=== PATIENT | male | born 1935 | race Caucasian/White ===

== ENCOUNTER 2017-08-08 08:30 | Observation (INO) | payer MEDICARE, MEDICAID ==
[2017-08-08] VITALS (10 sets, daily range): BP systolic 91–139; BP diastolic 48–94
[~2017-08-08] VITALS: Ht 188 cm; Wt 81.6 kg
[~2017-08-08 08:30] MED LIST: ABILIFY 2 MG2 M1 PO; APAP650 PO; ASPIR-TRIN325 MG PO; CLARITIN10 MG PO; COREG6.25 MG PO; DIGOXIN125 MCG PO; DUONEB 2.5-0.5 M3 ML INH; ENDUR-ACIN500 MG PO; LAMICTAL100 MG PO; LANTUS100 UNIT/M SUBQ; LASIX 40 MG TAB40 M2 PO; LEXAPRO20 MG PO; MAALOX ADVANCE355 M1 PO; MILK OF MA2400 MG/10 PO; NEURONTIN 300300 M1 PO; NITROGLYCERIN0.4 MG PO; PACERONE 200 M200 M1 PO; PLAVIX 75 MG TA75 M1 PO; POTASSIUM20 PO; TRAZODONE HCL50 MG PO; VENLAFAXINE HC150 M1 PO; VICODIN 5-3001 EACH PO; VISTARIL 25 MG25 M1 PO; VITAMIN D1000 UNI1 PO; ZANTAC 150MG T150 MG PO
[2017-08-08 09:07] LABS: HEMATOCRIT 40.2 % (42.0-52.0); MCH 31.3 pg (26.0-34.0); MCHC 32.3 g/dL (28.0-37.0); MCV 96.9 fL (80.0-100.0); MPV 10.6 fl. (7.2-11.1); RBC 4.14 mil/uL (4.50-6.00); RDW-CV 13.8 % (10.5-14.5); WBC 9.5 thou/uL (4.0-11.0)
[2017-08-08 09:16] LABS: CALCIUM 8.6 mg/dL (8.5-10.1); CREATININE 1.4 mg/dL (0.6-1.3); POTASSIUM 4.3 mmol/L (3.5-5.1)
[2017-08-08 09:20] LABS: APTT 25.9 Seconds (25.0-31.3); PROTIME 10.2 Seconds (9.20-11.50)
[2017-08-08 09:21] LABS: ALBUMIN 3.3 g/dL (3.4-5.0); TOTAL BILIRUBIN 0.4 mg/dL (<0.1-1.0)
--- NOTE | 2017-08-08 16:25 | EKG ---
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 : 1935 Requested By: Vikram Payne Order Number: [id number] Reading MD: Vikram Payne Measurements Intervals [place] Rate: 68 P: 0 [place]: 163 QRS: -81 QRSD: 284 T: 98 QT: 583 QTc: 621 Interpretive Statements A-V dual-paced rhythm with some inhibition No further analysis attempted due to paced rhythm Compared to ECG 01/27/2016 11:49:36 No significant changes Electronically Signed On 08-08-2017 16:25:38 CHIEF INFORMATION OFFICER by Vikram Payne [email or web address] <ELECTRONICALLY SIGNED> By: Vikram Payne MD, [facility] 08/08/17 1625 5 Vikram Payne MD, [facility] /EPI
[2017-08-09] VITALS: BP 87/45; BP 93/54
[2017-08-09 04:00] VITALS: BP 87/45
--- NOTE | 2017-08-09 07:07 | NUR ---
TOOK OVER CARE OF PT AT 0100, PT WAS SLEPING, IV FLUIDS NOTED TO BE INFUSING, LEFT ARM IN SLING, ABLE TO SEE DRESSING TO THE UPPER LEFT CHEST WHICH WAS C/D/I, 2L NC, V-PACED ON THE MONITOR, NURSE PROVIDING ME REPORT STATED PT'S BP RUN SOFT IN LOW 90'S/50'S, PT 0400 BP SOFT, PT ASYMPTOMATIC, PT REC PAIN MED FOR SORENESS TO INCISIONAL SITE X1, HOURLY ROUNING IN PLACE, FALL PRECAUIONS IN PLACE, WILL CONT TO MONITOR.
[2017-08-09 08:28] VITALS: BP 87/45
[2017-08-09 08:30] VITALS: BP 94/56
--- NOTE | 2017-08-09 09:57 | NUR ---
Pt discharging back to the [facility] in [place] today. Faxed dc orders. Chart copied. Nurse report number provided, . Updated Pt's Public Electrician Underground, Hayley Kelley of disposition. 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 Following.
[2017-08-09 12:07] VITALS: BP 92/48
--- NOTE | 2017-08-09 13:09 | EKG ---
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
--- NOTE | 2017-08-09 13:45 | NUR ---
RECEIVED REPORT FROM NOC RN. PT A & O X4. ABLE TO COMMUNICATE NEEDS TO STAFF. VS OBTAINED. ASSESSMENT COMPLETED. MEDS PER MAR. M/S STATUS. DC ORDERS COMPLETE. IV & TELE MONITOR DC'D. DC INSTRUCTIONS AND MED LIST PROCESSED AND INCLUDED IN PACKET THAT WAS GIVEN TO TRANSPORTATION PERSONNEL. PT LEFT UNIT AT 1340 VIA WC AND TRANSPORTER. PT TAKEN VIA WC VAN TO [facility] IN [place].
--- NOTE | 2017-08-21 08:38 | D ---
[facility] [address] [place] [address] DISCHARGE SUMMARY Name: LEONOR ARMSTRONG Room: [address] Shahla MLeonRLeon#: [id number] Admission: 08/08/17 Attend Phys: Vikram Payne MD Discharge: 08/09/17 Date of : 31 Report #: [id number] THIS REPORT FOR: //name// CC: Carlos Enrique Gallego MD LOCATED WITHIN [facility] DIS[facility]GE DIAGNOSES: 1. Complete heart block. 2. Right ventricular lead failure. PROCEDURES DURING THE HOSPITALIZATION: RV lead revision. HOSPITAL COURSE: The patient was brought to the hospital for revision of a failing right ventricular lead. The patient was brought to the interventional radiology lab. The device was explanted. The right ventricular lead was capped and a new RV lead placed. The patient had dislodgement of the lead post-procedure requiring returning to the IR lab for readjustment and positioning of the RV lead. Ultimately, a satisfactory position was achieved. The patient was kept in the hospital overnight. Chest x-ray showed no evidence of pneumothorax. Thresholds were checked the day following implant and were deemed to be satisfactory. The patient was returned to his assisted care facility in stable condition. DISCHARGE MEDICATIONS: Include Tylenol 650 mg p.r.n., amiodarone 200 mg daily, carvedilol 6.25 mg b.i.d., vitamin D 1000 units daily, digoxin 0.125 mg daily, Lexapro 20 mg daily, furosemide 40 mg daily, gabapentin 300 mg daily, Vicodin 5/300 q.6 hours p.r.n., Vistaril 25 mg 2 tablets q.6 hours, Lantus per sliding scale, lamotrigine 100 mg 1-1/2 tablets b.i.d., Claritin 10 mg daily, magnesium hydroxide 30 mL p.r.n., Maalox p.r.n., niacin 500 mg daily, Nitrostat p.r.n., potassium chloride 20 mEq b.i.d., Zantac 150 mg daily, trazodone 50 mg p.r.n., venlafaxine ER 150 mg daily, aspirin 325 mg daily, and Plavix 75 mg daily. DISPOSITION: The patient will follow up with site check in 1 week and per pacemaker routine. <ELECTRONICALLY SIGNED> By: Vikram Payne MD, FACC 08/21/17 0838 0932 1055Michema Payne MD, FACC /nt
--- NOTE | 2017-08-23 07:14 | CARD ---
[address] [address] CARDIAC CATH REPORT Name: LEONOR ARMSTRONG Room: [address] Shahla Guaman#: [id number] Admission: 08/08/17 Attend Phys: Vikram Payne MD Discharge: 08/09/17 Date of : 31 Report #: [id number] THIS REPORT FOR: //name// APPROVED REPORT Patient Status: OP Room #: Event Personnel: Vikram Payne Sql Engineer, Zuri Perales Monitor, Rima Prajapati RTR Scrub, Marzena Calderón RN Lance Crewmember, Lucero Jo RN Lance Crewmember Exam: Generator Change for a Dual Chamber Permanent Pacemaker with RV lead revision Indications: dual-chamber pulse generator at elective replacement. RV lead failure. The patient is a 81 year-old male with a history of . Conscious Sedation Start time: 10:50 End Time: 11:23 Fentanyl 50 mcg Versed 1 mg Implanted Devices: Biotronik Etrinsa 8 DR-T, model #582115, serial #[id number] Biotronik Solia S 60, model #910198, serial #[id number] Explanted Devices: Medtronic Adapta, model number a DDDR 01, serial number [id number] Medtronic model #407 65 8 serial number [id number] ventricular lead (capped) Procedure The patient underwent informed consent. We discussed the details of the procedure including the risks, which include, but not limited to bleeding, infection, vascular damage, cardiac perforation, and pneumothorax. After informed consent was obtained the patient was brought to the interventional radiology lab. The area of the left chest was prepped and draped in sterile fashion. Local anesthesia was achieved with 1% lidocaine. Next after an initial incision was made over the existing pulse generator the generator was explanted using electrocautery and blunt dissection. The patient was pacemaker dependent. The existing RV lead was attached to an external pulse generator for the remainder of the procedure. Next using a micropuncture kit and a peripheral injection of contrast the left subclavian vein was accessed. Ultimately a safety J guidewire was advanced to an area in the right atrium under fluoroscopic guidance. A [address] [place] [address] CARDIAC CATH REPORT Name: LEONOR ARMSTRONG [address] [id number] Admission: 08/08/17 Attend Phys: Vikram Payne MD Discharge: 08/09/17 Date of : 31 Report #: [id number] was advanced. Dilator and guidewire were removed and a right ventricular lead advanced to a secure position and the right ventricular apex. Thresholds were not adequate in this region. The lead was then affixed to the right ventricular septum. Thresholds were checked and deemed to be satisfactory. The lead was actively fixed. Next the existing RV lead was capped as the new RV lead was used for pacing. The right ventricular and atrial leads were attached to a new pulse generator. The pacemaker pocket was flushed using antibiotic solution. The Lead, generator and redundant RV and atrial leads were placed within the device pocket. The deep tissues were closed using 2-0 Vicryl suture in interrupted stitches. The skin incision was then closed with a single subcuticular stitch of 4-0 Vicryl. Several Steri-Strips were placed across the incision. A sterile Telfa dressing was then covered with a Tegaderm. The patient tolerated she well without complication. Electrode Parameters P Wave: 0.90 mV R Wave: no underlying R waves Atrial Threshold: 1.0 V at 0.40 ms Ventricular Threshold: 0.6 V at 0.40 ms Atrial Resistance: 312 ohms. Ventricular Resistance: 565 ohms. Complications The patient tolerated the procedure well and there were no complications associated with the procedure. Conclusion 1. Dual-chamber pulse generator at elective replacement. 2. Chronic right ventricular lead failure. 3. Successful replacement of a dual-chamber pulse generator. 4. Successful replacement of the right ventricular lead. Recommendations 1. Follow-up site check in one week. 2. Follow-up pacemaker interrogation per routine. <ELECTRONICALLY SIGNED> By: Vikram Payne MD, FACC 08/23/17712 2 2Michema Payne MD, FACC /INF
--- NOTE | 2017-08-23 07:21 | CARD ---
[address] [address] CARDIAC CATH REPORT Name: LEONOR ARMSTRONG Room: [address] Shahla Guaman#: [id number] Admission: 08/08/17 Attend Phys: Vikram Payne MD Discharge: 08/09/17 Date of : 31 Report #: [id number] THIS REPORT FOR: //name// APPROVED REPORT Patient Status: OP Room #: Event Personnel: Vikram Payne Commercial Finance Manager, Zuri Perales Monitor, Rima Prajapati RTR Scrub, Marzena Calderón RN Psychiatric Mental Health Nurse, Lucero Jo RN Psychiatric Mental Health Nurse Exam: RV lead revision Indications: dislodgment of existing right ventricular lead after implantation The patient is a 81 year-old male with a history of complete heart block status post recent RV lead replacement and dual-chamber pulse generator replacement. Conscious Sedation Fentanyl 75 mcg Versed 1 mg Procedure The patient underwent informed consent. We discussed the details of the procedure including the risks, which include, but not limited to bleeding, infection, vascular damage, cardiac perforation, and pneumothorax. The patient underwent dual chamber pulse generator replacement and elective right ventricular lead revision. On the day of revision he was noted to have intermittent pacemaker capture. Interrogation revealed acute decline in capture threshold. X-ray revealed dislodgment of the right ventricular lead. The patient was brought back to the interventional radiology lab for RV lead revision. Informed consent was obtained. The area of the left chest was again prepped and draped in sterile fashion. The existing subcuticular stitches and the sutures were removed. The pulse generator was explanted. The pacemaker pocket was flushed with antibody solution. The RV lead was detached from the dual chamber pulse generator. The chronic failing RV lead was utilized intermittently for temporary pacing. The new RV lead was then repositioned to the right ventricular apex. A stable position was achieved. Adequate thresholds were achieved. The RV lead was then secured again in the pacemaker pocket using the designated cuffs and 2-0 silk suture. The RV lead was then reattached to the dual-chamber pulse generator. Pulse generator and redundant lead were then replaced within the device pocket. The deep tissues were closed using interrupted stitches of 2-0 Vicryl. The skin incision was then [place] [address] CARDIAC CATH REPORT Name: LEONOR ARMSTRONG Room: [address] Shahla Guaman#: [id number] Admission: 08/08/17 Attend Phys: Vikram Payne MD Discharge: 08/09/17 Date of : 31 Report #: [id number] subcuticular stitch of 4-0 Vicryl. Several Steri-Strips were placed across the incision. A sterile Telfa dressing was then covered with a Tegaderm. The patient tolerated the procedure well without complication. Conclusion 1. RV lead dislodgment after initial revision. 2. Successful relocation of the right ventricular lead into a stable position in the RV apex. Recommendations 1. Keep follow-up as scheduled. <ELECTRONICALLY SIGNED> By: Vikram Payne MD, [facility] 08/23/17720 0 0Michaeginette Payne MD, FACC /INF
--- NOTE | 2017-08-23 09:21 | H ---
[place] [address] HISTORY AND PHYSICAL Name: LEONOR ARMSTRONG Room: [address] Shahla Guaman#: [id number] Admission: 08/08/17 Attend Phys: Vikram Payne MD Discharge: 08/09/17 Date of : 31 Report #: [id number] THIS REPORT FOR: //name// CC: DR STEPHANE Luna INDICATION: Dual chamber pulse generator at elective replacement with failing RV lead. HISTORY OF PRESENT ILLNESS: The patient is a very pleasant gentleman who has a history of complete heart block, status post dual chamber pacemaker placement. He has been noted to have failing right ventricular lead for some time. He now is at elective replacement for his dual chamber pulse generator. The patient is being admitted with planned dual chamber pulse generator replacement with RV lead revision. PAST MEDICAL HISTORY: 1. Paroxysmal atrial fibrillation. 2. Complete heart block. 3. Coronary artery disease. 4. Ischemic cardiomyopathy. 5. Hypertension. 6. Type 2 diabetes mellitus. 7. COPD. 8. Chronic renal insufficiency. PAST SURGICAL HISTORY: 1. Groin surgery on the left side. 2. Appendectomy. 3. Hip replacement. 4. Initial pacemaker placement in 2006, with generator change in 2015. FAMILY HISTORY: Positive for coronary artery disease. SOCIAL HISTORY: The patient is a current smoker, smoking a carton of cigarettes per month. He does not drink alcohol. ALLERGIES: None documented. CURRENT MEDICATIONS: Amiodarone 200 mg daily, aspirin 325 mg daily, carvedilol 6.25 mg b.i.d., Plavix 75 mg daily, digoxin 125 mcg daily, hydrocodone/acetaminophen 5/325 one tablet q.6 hours p.r.n., Lamictal 150 mg b.i.d., Lantus 100 units as designated, Lasix 40 mg daily, Lexapro 20 mg daily, milk of magnesia p.r.n., niacin 500 mg daily, Nitrostat p.r.n., [place] [address] HISTORY AND PHYSICAL Name: LEONOR ARMSTRONG Martin Room: [address] Rowena#: [id number] Admission: 08/08/17 Attend Phys: Vikram Payne MD Discharge: 08/09/17 Date of : 31 Report #: [id number] chloride 20 mEq daily, ranitidine 150 mg daily, trazodone 100 mg daily, Tylenol p.r.n., vitamin D 1000 units daily, gabapentin 300 mg daily, Maalox p.r.n., Abilify 2 mg daily, Combivent inhaler 4 times daily, Tums p.r.n. REVIEW OF SYSTEMS: The patient denies fevers, chills, sweats. He has no weight loss. Denies any lower extremity edema. Denies headache, dizziness or lightheadedness. He has an occasional cough that is nonproductive. He denies chest pain, tightness or palpitations. He is not having orthopnea. He denies nausea, vomiting, melena, hematochezia, jaundice or hepatitis. GENITOURINARY: There is no dysuria or hematuria. He denies any bleeding or anemia. No history of cancer. He has no significant medical or seasonal allergies. Denies acute depression or anxiety. 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 PHYSICAL EXAMINATION: VITAL SIGNS: Blood pressure 98/67, pulse 60 and regular. GENERAL: This is a pleasant elderly gentleman in no distress. Mood and affect appropriate. HEENT: Extraocular muscles intact. Mucous membranes are moist. NECK: Shows no jugular venous distention. There are no carotid bruits. CHEST: Reveals clear lung thapa without wheezes, rales or rhonchi. CARDIOVASCULAR: Reveals a regular rhythm. I do not appreciate gallop or murmur. ABDOMEN: Reveals normal bowel sounds. The abdomen is soft, nontender. EXTREMITIES: Show no edema. Peripheral pulses palpable. IMPRESSION: 1. Dual chamber pulse generator at elective replacement. 2. Right ventricular lead failure. 3. Coronary artery disease, stable. The patient is being brought to the cardiac catheterization lab for elective replacement of dual chamber pulse generator and RV lead revision. <ELECTRONICALLY SIGNED> By: Vikram Payne MD, FACC 08/23/17 0921 0729 0839Michema Payne MD, FACC /nt
== END 2017-08-09 13:40 ==
LOC: M.CL 08:30 → M.2W 16:44
PROVIDERS: ADMIT Internal Medicine Cardiovascular Disease
DX: I44.2 Atrioventricular block, complete (principal); T82.897A Other specified complication of cardiac prosthetic devices, implants and grafts, initial encounter; Y83.8 Other surgical procedures as the cause of abnormal reaction of the patient, or of later complication, without mention of misadventure at the time of the procedure